=== PATIENT | female | born 1960 | race Hispanic/Latino ===

== ENCOUNTER 2022-03-11 16:30 | Observation (INO) | payer SELFPAY ==
--- NOTE | 2022-03-11 17:06 | Emergency Department Report ---
ED Chest Pain HPI - General Chief Complaint: Chest Pain Stated Complaint: CHEST PAIN PUI?: No Time Seen by Provider: 03/11/22 16:45 Source: EMS Mode of arrival: Stretcher Limitations: No Limitations - History of Present Illness Initial Comments: Patient is a 61-year-old female who presents emergency room with complaints of chest pain and chest pressure x1 hour. Patient states originally it was the pain was a 7 out of 10. Patient states that once EMS gave her aspirin and nitro the pain reduced down to a 1-2 out of 10. Patient states it is now a 2 out of 10. Patient states he feels a squeezing pressure in the center of her chest. Patient denies radiation. Patient denies shortness of breath. Patient states she has a past medical history of hyperlipidemia, diabetes, hypertension. Patient states she does take aspirin daily. Patient denies recent travel. Patient denies recent international travel. Patient denies exposure to the novel coronavirus. Patient denies sick contacts. Patient denies fever and chills. Patient denies cough. Patient denies diarrhea. Patient denies coming in contact with anybody with symptoms of the novel coronavirus. MD Complaint: chest pain -: Sudden Onset: during rest Pain Location: substernal Pain Radiation: none Severity scale (0 -10): 2 Quality: pressure, squeezing Consistency: constant Improves With: rest Worsens With: exertion re: sense of impending doom. denies: nausea, vomting, diaphoresis, dyspnea Other Symptoms: denies: cough, fever, syncope, rash, acid taste in mouth, leg swelling, palpitations, burping Treatments Prior to Arrival: aspirin, nitroglycerin Aspirin use within the Past 7 Days: (1) Yes - Related Data On Oral Contraceptives: No Allergies Allergy/AdvReac Type Severity Reaction Status Date / Time codeine Allergy Unknown Verified 03/11/22 16:39 Heart Score - HEART Score History: Moderately suspicious EKG: Non-specific Age: 45-65 Risk factors: > 3 risk factors or hx of atherosclerotic disease Troponin: < normal limit HEART Score: 5 - EKG Read Time Time EKG Completed: 16:57 EKG Read Time: 16:59 ED Review of Systems ROS: Stated complaint: CHEST PAIN Other details as noted in HPI Constitutional: denies: chills, fever Eyes: denies: eye pain, eye discharge, vision change ENT: denies: ear pain, throat pain Respiratory: denies: cough, shortness of breath, wheezing Cardiovascular: as per HPI, chest pain. denies: palpitations Endocrine: no symptoms reported Gastrointestinal: denies: abdominal pain, nausea, diarrhea Genitourinary: denies: urgency, dysuria, discharge Musculoskeletal: denies: back pain, joint swelling, arthralgia Skin: denies: rash, lesions Neurological: denies: headache, weakness, paresthesias Psychiatric: denies: anxiety, depression Hematological/Lymphatic: denies: easy bleeding, easy bruising ED Past Medical Hx - Past Medical History Previous Medical History?: Yes Hx Hypertension: Yes Hx CVA: No Hx Heart Attack/AMI: No Hx Congestive Heart Failure: No Hx Diabetes: Yes Additional medical history: Hyperlipidemia - Surgical History Past Surgical History?: No - Family History Family history: no significant - Social History Smoking Status: Never Smoker Substance Use Type: None ED Physical Exam - General Limitations: No Limitations General appearance: alert, in no apparent distress - Head Head exam: Present: atraumatic, normocephalic - Eye Eye exam: Present: normal appearance - ENT ENT exam: Present: mucous membranes moist - Neck Neck exam: Present: normal inspection - Respiratory Respiratory exam: Present: normal lung sounds bilaterally. Absent: respiratory distress, wheezes, rales, rhonchi - Cardiovascular Cardiovascular Exam: Present: regular rate, normal rhythm. Absent: systolic murmur, diastolic murmur, rubs, gallop - GI/Abdominal GI/Abdominal exam: Present: soft, normal bowel sounds. Absent: distended, tenderness, guarding - Extremities Exam Extremities exam: Present: normal inspection - Back Exam Back exam: Present: normal inspection - Neurological Exam Neurological exam: Present: alert, oriented X3 - Psychiatric Psychiatric exam: Present: normal affect, normal mood - Skin Skin exam: Present: warm, dry, intact, normal color. Absent: rash ED Course Vital Signs 03/11/22 03/11/22 03/11/22 16:37 17:00 17:15 Temperature 97.9 F Pulse Rate 100 H 85 Respiratory 16 18 17 Rate Blood Pressure 118/67 Blood Pressure 116/68 [Left] O2 Sat by Pulse 97 98 92 Oximetry 03/11/22 03/11/22 03/11/22 17:45 18:01 18:38 Temperature Pulse Rate 80 78 77 Respiratory 13 12 Rate Blood Pressure 124/62 124/62 136/64 Blood Pressure [Left] O2 Sat by Pulse 98 98 Oximetry - Reevaluation(s) Reevaluation #1: Patient states her pain is starting to increase. Patient will be given nitro. 03/11/22 18:37 Reevaluation #2: I discussed all results with patient. I discussed plan of care with patient. Patient agrees with plan of care and admission. Patient to be admitted to the hospitalist service. 03/11/22 18:51 - Consultations Consultation #1: Hospitalist consulted for admission. Hospitalist to admit patient. 03/11/22 18:52 MARIALUISA score - Marialuisa Score Age > 65: (0) No Aspirin use within the Past 7 Days: (1) Yes 3 or more CAD Risk Factors: (1) Yes 2 or more Angina events in past 24 hrs: (0) No Known CAD with more than 50% Stenosis: (0) No Elevated Cardiac Markers: (0) No ST Deviation Greater than 0.5mm: (0) No MARIALUISA Score: 2 ED Medical Decision Making - Lab Data Result diagrams: 03/11/22 17:47 03/11/22 17:47 - EKG Data -: EKG Interpreted by [place] EKG shows normal: sinus rhythm, axis, intervals, QRS complexes, ST-T waves Rate: normal - Radiology Data Radiology results: report reviewed, image reviewed CHEST 1 VIEW INDICATION / CLINICAL INFORMATION: Chest Pain. COMPARISON: None available. FINDINGS: SUPPORT DEVICES: None. HEART / MEDIASTINUM: Moderate to large retrocardiac hiatal hernia. LUNGS / PLEURA: No significant pulmonary or pleural abnormality. No pneumothorax. ADDITIONAL FINDINGS: No significant additional findings. IMPRESSION: 1. No acute findings. 2. Large retrocardiac hiatal hernia - Medical Decision Making Patient is a 61-year-old female that presents emergency room with chest pain and chest pressure. Patient states that started approximately 1 hour prior to arrival. Patient had 2 nitroglycerin under the tongue and aspirin prior to arrival and her chest pain went from a 7 to a 2. Patient while in the ER chest pain increased again the patient was given another dose of nitro which decreased the chest pain further. Patient was placed on the coroner/medical examiner immediately upon arrival. Patient's vital signs were stable. Patient had an EKG done which showed a normal sinus rhythm with no ST changes. I personally reviewed the EKG. Patient had a chest x-ray was negative for acute finding. Personally reviewed the chest x-ray. Patient had labs done which were essentially unremarkable. Patient's D-dimer was negative. Patient troponin was negative. Patient admitted to the hospitalist service for further evaluation and treatment. Critical care time documented due to the multiple reassessments, prolonged time at the bedside, interpretation of diagnostics and labs. - Differential Diagnosis Chest pain, ACS, pneumonia, CHF, Critical Care Time: Yes Critical care time in (mins) excluding proc time.: 35 Critical care attestation.: If time is entered above; I have spent that time in minutes in the direct care of this critically ill patient, excluding procedure time. Critical Care Time: 35 minutes ED Disposition Clinical Impression: Chest pain Qualifiers: Chest pain type: unspecified Qualified Code(s): R07.9 - Chest pain, unspecified Disposition: 09 ADMITTED INPATIENT Is pt being admited?: Yes Does the pt Need Aspirin: No Condition: Critical Time of Disposition: 18:55
--- NOTE | 2022-03-11 18:02 | XRay Report ---
CHEST 1 VIEW INDICATION / CLINICAL INFORMATION: Chest Pain. COMPARISON: None available. FINDINGS: SUPPORT DEVICES: None. HEART / MEDIASTINUM: Moderate to large retrocardiac hiatal hernia. LUNGS / PLEURA: No significant pulmonary or pleural abnormality. No pneumothorax. ADDITIONAL FINDINGS: No significant additional findings. IMPRESSION: 1. No acute findings. 2. Large retrocardiac hiatal hernia Signer Name: Ozzy Elizabeth MD Signed: 03/11/2022 5:58 PM Workstation Name: [id number]
[2022-03-11 18:06] LABS: Basophils % (Auto) 0.8 % (0.0-1.8); Eosinophils # (Auto) 0.1 K/mm3 (0.0-0.4); Eosinophils % (Auto) 1.8 % (0.0-4.3); Hematocrit 34.4 % (30.3-42.9); Hemoglobin 11.2 gm/dl (10.1-14.3); Lymphocytes % (Auto) 31.7 % (13.4-35.0); Mean Corpuscular HGB Conc 33 % (30-34); Mean Corpuscular Volume 80 fl (79-97); Monocytes # (Auto) 0.6 K/mm3 (0.0-0.8); Monocytes % (Auto) 8.8 % (0.0-7.3); Platelet Count 216 K/mm3 (140-440); Red Blood Count 4.33 M/mm3 (3.65-5.03); Red Cell Distribution Width 16.9 % (13.2-15.2)
[2022-03-11 18:22] LABS: Alanine Aminotransferase 22 units/L (7-56); Albumin 3.9 g/dL (3.9-5); BUN/Creatinine Ratio 31; Blood Urea Nitrogen 22 mg/dL (7-17); Calcium 9.4 mg/dL (8.4-10.2); Hemolysis Index 5
[2022-03-11] MEDS ORDERED: NITROGLYCERIN 0.4 MG TAB SUBL SL ONE ×2 (18:36→18:37)
--- NOTE | 2022-03-11 18:53 | History and Physical Report ---
History of Present Illness Chief complaint: My chest is hurting and I feel tired and weak History of present illness: 61 YO Female with Obesity Hypoventilation Syndrome, HTN, DM, HLD, OA, Metabolic Syndrome presents to ED for evaluation. Patient reports "my chest is hurting and I feel tired and weak". Patient states that she has experienced decreased exercise tolerance, fatigue, and weakness over the past 1 week patient also reports a sudden onset of chest pain over the past several hours. Patient states that pain is 7/10, constant, worsened with exertion, relieved with rest, crushing in nature, substernal, nonradiating. Patient acknowledges dyspnea on exertion as well as dyspnea at rest, subjective weight gain over the past 1 week. EMS was notified and upon arrival the patient was found to be in distress and subsequent transported to [facility] for further care and evaluation of the aforementioned symptoms. The patient was seen and evaluated in the emergency department. All lab and imaging studies reviewed. Patient found to have clinical symptoms consistent with angina at rest as well as diastolic CHF. Patient admitted to telemetry and initiated on CHF protocol as well as ACS protocol. Patient denies fever, chills, productive cough, skin rash, recent contact, unilateral leg swelling, calf pain, prolonged travel/immobility, individual/family history of DVT/PE/bleeding/blood clotting disorders, or known exposure to COVID-19. No prior admission for review. No medication listed at time of admission for reconciliation. Advanced care planning conducted in ED. Past History Past Medical History: arthritis, diabetes, hypertension, hyperlipidemia, other (See HPI) Past Surgical History: No surgical history, Other (Reviewed) Social history: . denies: smoking, alcohol abuse Family history: diabetes, hypertension Medications and Allergies Allergies Allergy/AdvReac Type Severity Reaction Status Date / Time codeine Allergy Unknown Verified 03/11/22 16:39 Review of Systems Constitutional: weight gain, no weight loss, no fever, no chills Ears, nose, mouth and throat: no ear pain, no ear discharge, no nasal discharge Cardiovascular: chest pain, shortness of breath, dyspnea on exertion, decreased exercise tolerance Respiratory: no cough, no shortness of breath Gastrointestinal: no abdominal pain, no vomiting, no diarrhea, no constipation Genitourinary Female: no pelvic pain, no flank pain, no dysuria, no urinary frequency, no urgency Rectal: no pain, no incontinence, no bleeding Musculoskeletal: no neck stiffness, no neck pain, no shooting arm pain, no shooting leg pain Integumentary: no rash, no pruritis, no redness, no sores, no wounds Neurological: no head injury, no weakness, no numbness, no syncope Psychiatric: no anxiety, no memory loss, no sleep disturbances, no insomnia, no change in appetite, no change in libido Endocrine: no cold intolerance, no heat intolerance, no excessive thirst, no polydipsia, no nocturia, no excessive sweating Hematologic/Lymphatic: no easy bruising, no easy bleeding Allergic/Immunologic: no urticaria, no allergic rhinitis Exam - Constitutional Vitals: Temp Pulse Resp BP Pulse Ox 97.9 F 97 H 16 136/64 98 03/11/22 16:37 03/11/22 18:45 03/11/22 18:45 03/11/22 18:45 03/11/22 18:45 General appearance: Present: mild distress, obese - EENT Eyes: Present: PERRL ENT: hearing intact, clear oral mucosa - Neck Neck: Present: supple, normal ROM - Respiratory Respiratory effort: normal Respiratory: bilateral: CTA - Cardiovascular Heart Sounds: Present: S1 & S2. Absent: rub, click - Extremities Extremities: pulses symmetrical, No edema Peripheral Pulses: within normal limits - Abdominal General gastrointestinal: Present: soft, non-tender, non-distended, normal bowel sounds Female genitourinary: Present: normal - Integumentary Integumentary: Present: clear, warm, dry - Musculoskeletal Musculoskeletal: gait normal, strength equal bilaterally - Psychiatric Psychiatric: appropriate mood/affect, intact judgment & insight - Neurologic Neurologic: CNII-XII intact, moves all extremities HEART Score - HEART Score EKG: Non-specific Age: 45-65 Risk factors: 1-2 risk factors Troponin: Troponin T < 0.010 ng/mL (0.00-0.029) 03/11/22 17:47 Results - Labs CBC & Chem 7: 03/11/22 17:47 03/11/22 17:47 Labs: Abnormal lab results 03/11/22 03/11/22 Range/Units 17:47 17:47 MCH 26 L (28-32) pg RDW 16.9 H (13.2-15.2) % [place] % (Auto) 8.8 H (0.0-7.3) % BUN 22 H (7-17) mg/dL Glucose 207 H (65-100) mg/dL Assessment and Plan - Patient Problems (1) Angina at rest Status: Acute Plan to address problem: ACS protocol: Serial cardiac enzymes, EKG, telemetry monitoring, morphine, submental oxygen, nitro, aspirin, cardiology team consulted. Further care and evaluation as per cardiology team. (2) Diastolic CHF Status: Acute Qualifiers: Heart failure chronicity: acute Qualified Code(s): I50.31 - Acute diastolic (congestive) heart failure Plan to address problem: Strict I/O, monitoring output every shift, daily weight, afterload reduction, blood pressure control, echocardiogram ordered and pending at time of admission, thyroid panel, magnesium level. Cardiology team consulted. (3) Metabolic syndrome Status: Acute Plan to address problem: Balanced diet, increase physical activity discharge, weight reduction, risk factor reduction. (4) Hypertension Status: Acute Qualifiers: Hypertension type: primary hypertension Qualified Code(s): I10 - Essential (primary) hypertension Plan to address problem: Monitor blood pressure every shift, continue medical management. (5) Diabetes Status: Acute Plan to address problem: Consistent carbohydrate diet, Accu-Chek, insulin protocol, hypoglycemia protocol. (6) Obesity hypoventilation syndrome Status: Acute Plan to address problem: Balanced diet, increase physical activity discharge, outpatient pulmonary follow-up for sleep study. (7) DVT prophylaxis Status: Acute Plan to address problem: SCD to bilateral lower extremities while in bed (8) Advance care planning Status: Acute Plan to address problem: Disease education conducted, care plan discussed, diagnoses discussed, prognosis discussed, patient is full code. Patient knowledges understanding and agreement with care plan, +30 minutes. (9) Preventative health care Status: Acute Plan to address problem: Patient counseled regarding risk factor reduction, weight reduction, balanced diet, outpatient follow-up with primary care physician for all age and risk factor appropriate screening test. +30 minutes.
[2022-03-11] MEDS ORDERED: NITROGLYCERIN 0.4 MG TAB SUBL SL PRN (18:55)
[2022-03-11] MEDS ORDERED: ONDANSETRON 4 MG/2 ML INJ IV PRN (18:55)
[2022-03-11] MEDS ORDERED: ACETAMINOPHEN 325 MG TAB PO PRN (18:55)
[2022-03-11] MEDS ORDERED: oxyCODONE /ACETAMINOPHEN 5-325MG TAB PO PRN (18:55)
[2022-03-11] MEDS ORDERED: ASPIRIN 81 MG TAB CHEW PO STA (18:55)
[2022-03-11] MEDS ORDERED: ALBUTEROL 2.5 MG/3 ML NEBU IH PRN (18:55)
[2022-03-11] MEDS ORDERED: MORPHINE 4 MG/1 ML INJ IV PRN (18:55)
[2022-03-11] MEDS ORDERED: DEXTROSE 50% IN WATER (25GM) 50 ML SYRINGE IV PRN (18:58)
[2022-03-11] MEDS ORDERED: FAMOTIDINE 20 MG TAB PO SCH (22:00)
[2022-03-11 22:39] LABS: Free T4 (Free Thyroxine) 0.93 ng/dL (0.76-1.46)
[2022-03-12 07:14] LABS: Blood Urea Nitrogen 16 mg/dL (7-17); Calcium 9.1 mg/dL (8.4-10.2); Hemolysis Index 2
[2022-03-12 07:15] LABS: BUN/Creatinine Ratio 27
--- NOTE | 2022-03-12 08:00 | Progress Note ---
Assessment and Plan Assessment and Plan - Patient Problems (1) Angina at rest Status: Acute Plan to address problem: ACS protocol: Serial cardiac enzymes, EKG, telemetry monitoring, morphine, submental oxygen, nitro, aspirin, cardiology team consulted. Further care and evaluation as per cardiology team. (2) Diastolic CHF Status: Acute Qualifiers: Heart failure chronicity: acute Qualified Code(s): I50.31 - Acute diastolic (congestive) heart failure Plan to address problem: Strict I/O, monitoring output every shift, daily weight, afterload reduction, blood pressure control, echocardiogram ordered and pending at time of admission, thyroid panel, magnesium level. Cardiology team consulted. (3) Metabolic syndrome Status: Acute Plan to address problem: Balanced diet, increase physical activity discharge, weight reduction, risk factor reduction. (4) Hypertension Status: Acute Qualifiers: Hypertension type: primary hypertension Qualified Code(s): I10 - Essential (primary) hypertension Plan to address problem: Monitor blood pressure every shift, continue medical management. (5) Diabetes Status: Acute Plan to address problem: Consistent carbohydrate diet, Accu-Chek, insulin protocol, hypoglycemia protocol. (6) Obesity hypoventilation syndrome Status: Acute Plan to address problem: Balanced diet, increase physical activity discharge, outpatient pulmonary follow-up for sleep study. (7) DVT prophylaxis Status: Acute Plan to address problem: SCD to bilateral lower extremities while in bed (8) Advance care planning Status: Acute Plan to address problem: Disease education conducted, care plan discussed, diagnoses discussed, prognosis discussed, patient is full code. Patient knowledges understanding and agreement with care plan, +30 minutes. (9) Preventative health care Status: Acute Plan to address problem: Patient counseled regarding risk factor reduction, weight reduction, balanced diet, outpatient follow-up with primary care physician for all age and risk fa ctor appropriate screening test. +30 minutes. Subjective Date of service: 03/12/22 Interval history: 61 YO Female with Obesity Hypoventilation Syndrome, HTN, DM, HLD, OA, Metabolic Syndrome presents to ED for evaluation. Patient reports "my chest is hurting and I feel tired and weak". Patient states that she has experienced decreased exercise tolerance, fatigue, and weakness over the past 1 week patient also reports a sudden onset of chest pain over the past several hours. Patient states that pain is 7/10, constant, worsened with exertion, relieved with rest, crushing in nature, substernal, nonradiating. Patient acknowledges dyspnea on exertion as well as dyspnea at rest, subjective weight gain over the past 1 week. EMS was notified and upon arrival the patient was found to be in distress and subsequent transported to [facility] for further care and evaluation of the aforementioned symptoms. The patient was seen and evaluated in the emergency department. All lab and imaging studies reviewed. Patient found to have clinical symptoms consistent with angina at rest as well as diastolic CHF. Patient admitted to telemetry and initiated on CHF protocol as well as ACS protocol. Patient denies fever, chills, productive cough, skin rash, recent contact, unilateral leg swelling, calf pain, prolonged travel/immobility, individual/family history of DVT/PE/bleeding/blood clotting disorders, or known exposure to COVID-19. No prior admission for review. No medication listed at time of admission for reconciliation. Advanced care planning conducted in ED. Objective - Constitutional Vitals: Vital Signs - 12hr 03/11/22 03/11/22 03/11/22 20:01 20:15 20:31 Temperature Pulse Rate 76 79 78 Respiratory 13 11 L 13 Rate Blood Pressure 111/56 110/54 111/52 Blood Pressure [Left] O2 Sat by Pulse 99 99 98 Oximetry 03/11/22 03/11/22 03/11/22 20:45 21:01 21:15 Temperature Pulse Rate 78 78 77 Respiratory 13 12 14 Rate Blood Pressure 115/57 113/56 117/57 Blood Pressure [Left] O2 Sat by Pulse 98 96 99 Oximetry 03/11/22 03/11/22 03/11/22 21:31 21:45 22:01 Temperature Pulse Rate 78 84 76 Respiratory 14 16 13 Rate Blood Pressure 111/55 111/55 111/55 Blood Pressure [Left] O2 Sat by Pulse 98 100 99 Oximetry 03/11/22 03/11/22 03/11/22 22:15 22:31 22:40 Temperature Pulse Rate 79 92 H Respiratory 14 12 Rate Blood Pressure 117/57 117/57 Blood Pressure [Left] O2 Sat by Pulse 97 97 98 Oximetry 03/11/22 03/11/22 03/11/22 22:45 23:01 23:03 Temperature Pulse Rate 80 83 92 H Respiratory 15 12 14 Rate Blood Pressure 117/57 117/57 117/57 Blood Pressure [Left] O2 Sat by Pulse 97 96 97 Oximetry 03/11/22 03/11/22 03/11/22 23:11 23:21 23:31 Temperature Pulse Rate 81 81 76 Respiratory 12 12 12 Rate Blood Pressure 117/57 117/57 117/57 Blood Pressure [Left] O2 Sat by Pulse 97 97 98 Oximetry 03/11/22 03/11/22 03/12/22 23:41 23:51 00:40 Temperature Pulse Rate 77 79 78 Respiratory 15 13 13 Rate Blood Pressure 117/57 117/57 117/57 Blood Pressure [Left] O2 Sat by Pulse 96 97 Oximetry 03/12/22 03/12/22 00:50 04:21 Temperature 98.8 F 97.8 F Pulse Rate 76 78 Respiratory 20 18 Rate Blood Pressure 124/72 Blood Pressure 128/68 [Left] O2 Sat by Pulse 98 96 Oximetry General appearance: Present: no acute distress, well-nourished - EENT Eyes: PERRL, EOM intact ENT: hearing intact, clear oral mucosa Ears: bilateral: normal - Neck Neck: supple, normal ROM - Respiratory Respiratory effort: normal Respiratory: bilateral: CTA - Breasts Breasts: normal - Cardiovascular Rhythm: regular Heart Sounds: Present: S1 & S2. Absent: gallop, rub Extremities: pulses intact, No edema, normal color, Full ROM - Gastrointestinal General gastrointestinal: Present: soft, non-tender, non-distended, normal bowel sounds - Genitourinary Female genitourinary: normal - Integumentary Integumentary: clear, warm, dry - Musculoskeletal Musculoskeletal: 1, strength equal bilaterally - Neurologic Neurologic: moves all extremities - Psychiatric Psychiatric: memory intact, appropriate mood/affect, intact judgment & insight - Labs CBC & Chem 7: 03/11/22 17:47 03/12/22 06:09 Labs: Abnormal lab results 03/11/22 03/11/22 03/11/22 Range/Units 17:47 17:47 21:58 MCH 26 L (28-32) pg RDW 16.9 H (13.2-15.2) % [place] % (Auto) 8.8 H (0.0-7.3) % BUN 22 H (7-17) mg/dL Glucose 207 H (65-100) mg/dL Magnesium 1.40 L (1.7-2.3) mg/dL 03/12/22 Range/Units 06:09 MCH (28-32) pg RDW (13.2-15.2) % [place] % (Auto) (0.0-7.3) % BUN (7-17) mg/dL Glucose 158 H (65-100) mg/dL Magnesium (1.7-2.3) mg/dL HEART Score - HEART Score EKG: Non-specific Age: 45-65 Risk factors: > 3 risk factors or hx of atherosclerotic disease Troponin: Troponin T < 0.010 ng/mL (0.00-0.029) 03/12/22 00:02 Troponin: < normal limit
[2022-03-12 08:48] VITALS: BP 134/70
--- NOTE | 2022-03-12 09:57 | Consultation ---
History of Present Illness Consult date: 03/12/22 Requesting physician: AKHIL DUMONT Consult reason: chest pain, congestive heart failure History of present illness: Pt is a 61-year-old female with a hx of HTN and DM2 who presented with complaints of chest pain and palpitations. Pt states she was at work yesterday when the chest pain started. She works in an office building. She had just returned to her desk when she felt progressively worsening pain in the center of the chest "like a knot in my chest." Associated with palpitations and diaphoresis. The pain persisted until she received SL NTG from EMS. She reports a recurrent episode of pain after arrival, again relieved by NTG. No further chest pain or other cardiac complaints. Resting comfortably in bed this AM. Of note, pt reports significant external stress lately related to family issues and caring for her father. Cardiology has been consulted for angina and CHF. Pt is previously unknown to our practice and states she has never seen a [employer]. Tn neg x 3. ECG reveals NSR, no acute ischemic changes. BNP within normal limits. CXR reveals no acute cardiopulmonary findings. Large hiatal hernia noted. Past History Past Medical History: diabetes, hypertension Past Surgical History: No surgical history. denies: CABG, PTCA Social history: . denies: smoking, alcohol abuse Family history: diabetes, hypertension Medications and Allergies Allergies Allergy/AdvReac Type Severity Reaction Status Date / Time codeine Allergy Unknown Verified 03/11/22 16:39 Active Meds: Active Medications Acetaminophen (Acetaminophen 325 Mg Tab) 650 mg PO Q4H PRN PRN Reason: Pain MILD(1-3)/Fever >100.5/ANDINO Albuterol (Albuterol 2.5 Mg/3 Ml Nebu) 2.5 mg IH Q4HRT PRN PRN Reason: Shortness Of Breath Dextrose (Dextrose 50% In Water (25gm) 50 Ml Syringe) 50 ml IV Q30MIN PRN; Protocol PRN Reason: Hypoglycemia Famotidine (Famotidine 20 Mg Tab) 20 mg PO BID HELADIO Insulin Human Lispro (Insulin Lispro 100 Unit/Ml) 0 unit SUB-Q ACHS HELADIO; Protocol Morphine Sulfate (Morphine 4 Mg/1 Ml Inj) 2 mg IV Q8H PRN PRN Reason: Pain , Severe (7-10) Nitroglycerin (Nitroglycerin 0.4 Mg Tab Subl) 0.4 mg SL .Q5MIN PRN PRN Reason: Chest Pain Ondansetron HCl (Ondansetron 4 Mg/2 Ml Inj) 4 mg IV Q8H PRN PRN Reason: Nausea And Vomiting Oxycodone/Acetaminophen (Oxycodone /Acetaminophen 5-325mg Tab) 1 tab PO Q6H PRN PRN Reason: Pain, Moderate (4-6) Sodium Chloride (Sodium Chloride 0.9% 10 Ml Flush Syringe) 10 ml IV BID HELADIO Sodium Chloride (Sodium Chloride 0.9% 10 Ml Flush Syringe) 10 ml IV PRN PRN PRN Reason: LINE FLUSH Review of Systems Constitutional: sweats, no fever, no chills Ears, nose, mouth and throat: no nasal congestion, no sore throat Cardiovascular: chest pain, palpitations, no edema, no syncope, no lighth eadedness, no shortness of breath, no claudication Respiratory: no cough, no shortness of breath, no dyspnea on exertion Gastrointestinal: no abdominal pain, no nausea, no vomiting Genitourinary Female: no dysuria Musculoskeletal: no myalgias Integumentary: no rash, no wounds Neurological: no head injury, no weakness, no numbness, no tingling, no s eizures, no syncope, no vertigo, no headaches Endocrine: no cold intolerance, no heat intolerance Allergic/Immunologic: no anaphylaxis Physical Examination Vital Signs Temp Pulse Resp BP Pulse Ox 97.9 F 100 H 16 116/68 97 03/11/22 16:37 03/11/22 16:37 03/11/22 16:37 03/11/22 16:37 03/11/22 16:37 General appearance: no acute distress HEENT: Positive: EOMI, Normocephaly Neck: Positive: neck supple, trachea midline. Negative: JVD/HJR Cardiac: Positive: Reg Rate and Rhythm, S1/S2. Negative: Audible Murmur Lungs: Positive: clear to auscultation Neuro: Positive: Grossly Intact Abdomen: Positive: Soft. Negative: Tender Skin: Negative: Rash Musculoskeletal: No Pain Extremities: Present: upper extr. pulses, edema (trace BLE), warm Results 03/11/22 17:47 03/12/22 06:09 Cardiac Enzymes 03/11/22 Range/Units 17:47 AST 19 (5-40) units/L CBC 03/11/22 Range/Units 17:47 WBC 6.3 (4.5-11.0) K/mm3 RBC 4.33 (3.65-5.03) M/mm3 Hgb 11.2 (10.1-14.3) gm/dl Hct 34.4 (30.3-42.9) % Plt Count 216 (140-440) K/mm3 Lymph # (Auto) 2.0 (1.2-5.4) K/mm3 [place] # (Auto) 0.6 (0.0-0.8) K/mm3 Eos # (Auto) 0.1 (0.0-0.4) K/mm3 Baso # (Auto) 0.0 (0.0-0.1) K/mm3 Comprehensive Metabolic Panel 03/11/22 03/12/22 Range/Units 17:47 06:09 Sodium 138 142 (137-145) mmol/L Potassium 4.8 4.2 (3.6-5.0) mmol/L Chloride 100.0 106.7 (98-107) mmol/L Carbon Dioxide 25 26 (22-30) mmol/L BUN 22 H 16 (7-17) mg/dL Creatinine 0.7 0.6 (0.6-1.2) mg/dL Glucose 207 H 158 H (65-100) mg/dL Calcium 9.4 9.1 (8.4-10.2) mg/dL AST 19 (5-40) units/L ALT 22 (7-56) units/L Alkaline Phosphatase 103 (35-129) units/L Total Protein 6.8 (6.3-8.2) g/dL Albumin 3.9 (3.9-5) g/dL - Imaging and Cardiology Echo: pending EKG: report reviewed, image reviewed - EKG Interpretation EKG: no acute changes EKG interpretations - Telemetry EKG Rhythm: Sinus Rhythm - EKG Sinus rhythms and dysrhythmias: sinus rhythm Assessment and Plan Assessment: Chest Pain Palpitations Hypomagnesemia HTN DM2 Morbid Obesity Large Hiatal Hernia Plan: Tn neg x 3. ECG reveals NSR, no acute ischemic changes. Tele reviewed - SR 70-80s, no events. Recommend repletion of Mg to avoid arrhythmias. Echo preliminarily reveals LVEF 50-55%, mild LVH, no significant valvular abnormalities. Otherwise stable cardiac status. No objection to discharge from a Cardiology standpoint pending Mg repletion. Plan for stress test and 48hr Holter monitor as an outpatient next week. Follow-up with Dr. Liam Kelley in 1-2 weeks ([phone]). Pt seen in conjunction with Dr. Liam Kelley, who agrees with the assessment and plan of care. - Patient Problems (1) Chest pain Current Visit: Yes Status: Acute (2) Palpitations Current Visit: Yes Status: Acute (3) Hypertension Current Visit: Yes Status: Chronic Qualifiers: Hypertension type: primary hypertension Qualified Code(s): I10 - Essential (primary) hypertension (4) DM2 (diabetes mellitus, type 2) Current Visit: Yes Status: Chronic (5) Morbid obesity Current Visit: Yes Status: Chronic
[2022-03-12] MEDS: INSULIN LISPRO 100 UNIT/ML SUB-Q SCH ×2 (10:41→10:42)
--- NOTE | 2022-03-12 12:49 | Discharge Summary ---
Providers - Providers Date of Admission: 03/11/22 18:55 Date of discharge: 03/12/22 Attending physician: AMBER MERCER 03/11/22 Consult to Cardiac Rehabilitation [CONS] Routine Reason For Exam: Phase 1 03/11/22 18:55 Consult to Cardiology [CONS] Routine Consulting Provider: CRYSTAL SILVERIO Reason For Exam: angina/chf Primary care physician: THUY HANNA Hospitalization Condition: Critical Hospital course: Subjective Date of service: 03/12/22 Interval history: 61 YO Female with Obesity Hypoventilation Syndrome, HTN, DM, HLD, OA, Metabolic Syndrome presents to ED for evaluation. Patient reports "my chest is hurting and I feel tired and weak". Patient states that she has experienced decreased exercise tolerance, fatigue, and weakness over the past 1 week patient also reports a sudden onset of chest pain over the past several hours. Patient states that pain is 7/10, constant, worsened with exertion, relieved with rest, crushing in nature, substernal, nonradiating. Patient acknowledges dyspnea on exertion as well as dyspnea at rest, subjective weight gain over the past 1 week. EMS was notified and upon arrival the patient was found to be in distress and subsequent transported to [facility] for further care and evaluation of the aforementioned symptoms. The patient was seen and evaluated in the emergency department. All lab and imaging studies reviewed. Patient found to have clinical symptoms consistent with angina at rest as well as diastolic CHF. Patient admitted to telemetry and initiated on CHF protocol as well as ACS protocol. Patient denies fever, chills, productive cough, skin rash, recent contact, unilateral leg swelling, calf pain, prolonged travel/immobility, individual/family history of DVT/PE/bleeding/blood clotting disorders, or known exposure to COVID-19. No prior admission for review. No medication listed at time of admission for reconciliation. Advanced care planning conducted in ED. 03/12/2022 Echocardiogram Ejection fraction 50 to 55% Slight hypokinesis of the left ventricle Troponins negative Assessment and Plan - Patient Problems (1) Angina at rest Status: Acute Plan to address problem: Troponins negative (2) Diastolic CHF Status: Acute Qualifiers: Heart failure chronicity: acute Qualified Code(s): I50.31 - Acute diastolic (congestive) heart failure Plan to address problem: Stable (3) Metabolic syndrome Status: Acute Plan to address problem: Balanced diet, increase physical activity discharge, weight reduction, risk factor reduction. (4) Hypertension Status: Acute Qualifiers: Hypertension type: primary hypertension Qualified Code(s): I10 - Essential (primary) hypertension Plan to address problem: Blood pressure under control (5) Diabetes Status: Acute Plan to address problem: Consistent carbohydrate diet, Accu-Chek, insulin protocol, hypoglycemia protocol. (6) Obesity hypoventilation syndrome Status: Acute Plan to address problem: Balanced diet, increase physical activity discharge, outpatient pulmonary follow-up for sleep study. (7) DVT prophylaxis Status: Acute Plan to address problem: SCD to bilateral lower extremities while in bed (8) Advance care planning Status: Acute Plan to address problem: Disease education conducted, care plan discussed, diagnoses discussed, prognosis discussed, patient is full code. Patient knowledges understanding and agreement with care plan, +30 minutes. (9) Preventative health care Status: Acute Plan to address problem: Patient counseled regarding risk factor reduction, weight reduction, balanced diet, outpatient follow-up with primary care physician for all age and risk factor appropriate screening test. +30 minutes. Disposition: 01 HOME / SELF CARE / HOMELESS Final Discharge Diagnosis (Prints w/discharge instructions): Acute coronary syndrome. Hypertension. T2DM. Obesity hypoventilation syndrome Time spent for discharge: 35 minutes - Discharge Diagnoses (1) Acute coronary syndrome Status: Acute Comment: Troponins are negative Stress test as outpatient Follow-up with cardiology--[facility] (2) DM2 (diabetes mellitus, type 2) Status: Chronic (3) Hypertension Status: Chronic Qualifiers: Hypertension type: primary hypertension Qualified Code(s): I10 - Essential (primary) hypertension Core Measure Documentation - Palliative Care Palliative Care/ Comfort Measures: Not Applicable - Core Measures Any of the following diagnoses?: none Exam - Constitutional Vitals: Temp Pulse Resp BP Pulse Ox 98.3 F 79 18 134/70 97 03/12/22 08:46 03/12/22 08:46 03/12/22 08:46 03/12/22 08:46 03/12/22 08:46 General appearance: Present: no acute distress, well-nourished - EENT Eyes: Present: PERRL ENT: hearing intact, clear oral mucosa - Neck Neck: Present: supple, normal ROM - Respiratory Respiratory effort: normal Respiratory: bilateral: CTA - Cardiovascular Heart rate: 78 Rhythm: regular Heart Sounds: Present: S1 & S2. Absent: rub, click - Extremities Extremities: pulses symmetrical, No edema Peripheral Pulses: within normal limits - Abdominal General gastrointestinal: Present: soft, non-tender, non-distended, normal bowel sounds Female genitourinary: Present: normal - Integumentary Integumentary: Present: clear, warm, dry - Musculoskeletal Musculoskeletal: gait normal, strength equal bilaterally - Psychiatric Psychiatric: appropriate mood/affect, intact judgment & insight - Neurologic Neurologic: CNII-XII intact, moves all extremities Plan Activity: no restrictions Diet: low fat, low cholesterol, low salt Follow up with: THUY HANNA MD [Primary Care Provider] - 7 Days LUL PERRIN MD [Staff Physician] - 7 Days
--- NOTE | 2022-03-14 09:56 | Electrocardiograph Report ---
[facility] Test Date: 2022-03-11 Test Time: 16:57:56 Pat Name: NORMAN RIVERA Department: Room: A470 1 Gender: F Cryptographer: JUAN DANIEL : 1960 Requested By: ANGELINE GARLAND III Order Number: [id number] Reading MD: Erick Kelley Measurements Intervals [place] Rate: 80 P: 30 NE: 156 QRS: 46 QRSD: 96 T: 23 QT: 384 QTc: 444 Interpretive Statements Sinus rhythm Low voltage, precordial leads No previous ECG available for comparison Electronically Signed On 03-14-2022 9:56:21 EDT by Erick Kelley
--- NOTE | 2022-03-14 09:59 | Electrocardiograph Report ---
[facility] Test Date: 2022-03-12 Test Time: 07:03:21 Pat Name: NORMAN RIVERA Department: Room: A470 1 Gender: F Felt Finishing Supervisor: ZAYDA : 1960 Requested By: AKHIL DUMONT Order Number: [id number] Reading MD: Erick Kelley Measurements Intervals [place] Rate: 81 P: 26 [place]: 144 QRS: 58 QRSD: 101 T: 32 QT: 394 QTc: 458 Interpretive Statements Sinus rhythm Low voltage, extremity leads Compared to ECG 03/11/2022 16:57:56 No significant changes Electronically Signed On 03-14-2022 9:59:35 EDT by Erick Kelley
--- NOTE | 2022-03-14 10:00 | Electrocardiograph Report ---
[facility] Test Date: 2022-03-12 Test Time: 10:38:50 Pat Name: NORMAN RIVERA Department: Room: A470 1 Gender: F Production Gear Cutter: ZAYDA : 1960 Requested By: AKHIL DUMONT Order Number: [id number] Reading MD: Erick Kelley Measurements Intervals [place] Rate: 83 P: 35 MA: 140 QRS: 63 QRSD: 93 T: 30 QT: 395 QTc: 464 Interpretive Statements Sinus rhythm Low voltage, extremity leads Compared to ECG 03/12/2022 07:03:21 No significant changes Electronically Signed On 03-14-2022 9:59:49 EDT by Erick Kellye
== END 2022-03-12 14:50 | disposition home or self-care (01) ==
LOC: ED 16:30 → 4A 18:55 → INTOOBSV 18:55
PROVIDERS: ADMIT Internal Medicine; ATTEND Internal Medicine
DX: I20.8 Other forms of angina pectoris (principal); I11.0 Hypertensive heart disease with heart failure; I50.31 Acute diastolic (congestive) heart failure; E88.81 Metabolic syndrome and other insulin resistance; R07.89 Other chest pain; E66.2 Morbid (severe) obesity with alveolar hypoventilation; E11.9 Type 2 diabetes mellitus without complications; E83.42 Hypomagnesemia; M19.90 Unspecified osteoarthritis, unspecified site; K44.9 Diaphragmatic hernia without obstruction or gangrene; R00.2 Palpitations; E78.5 Hyperlipidemia, unspecified; Z68.41 Body mass index [BMI] 40.0-44.9, adult; Z95.1 Presence of aortocoronary bypass graft
CPT/HCPCS: 36415; 71045; 80048; 80053; 82962; 83735; 83880; 84439; 84443; 84484; 85025; 85379; 93005; 94640; 99291; C8929; G0378; 93306